=== PATIENT | female | born 1980 | race African-American/Black ===

== ENCOUNTER 2020-05-10 06:43 | Emergency (ER) | payer OTHER ==
[2020-05-10 07:20] VITALS: BP 120/75
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
== END 2020-05-10 09:01 | disposition home or self-care (01) ==
LOC: ER 06:43
DX: S29.011A Strain of muscle and tendon of front wall of thorax, initial encounter (principal); S29.012A Strain of muscle and tendon of back wall of thorax, initial encounter; S76.012A Strain of muscle, fascia and tendon of left hip, initial encounter; V49.40XA Driver injured in collision with unspecified motor vehicles in traffic accident, initial encounter
CPT/HCPCS: 99282